=== PATIENT | male | born 1975 | race Two or more races ===

== ENCOUNTER 2018-04-16 07:26 | Day surgery (SDC) | payer BC ==
[~2018-04-16] VITALS: Ht 157.5 cm; Wt 79.1 kg
[~2018-04-16 07:26] MED LIST: MOBIC7.5 MG PO; RANITIDINE HCL150 M1 PO
[2018-04-16] MEDS ORDERED: HEALTHYLAX17 GM PO (08:15)
[2018-04-16 08:25] VITALS: Ht 157.5 cm; Wt 79.1 kg
== END 2018-04-16 16:00 | disposition home or self-care (01) ==
LOC: D.OPS 07:26 → D.PAN 10:45 → D.OPS 13:00
DX: K64.8 Other hemorrhoids (principal); K64.5 Perianal venous thrombosis